=== PATIENT | female | born 1970 | race Caucasian/White ===

== ENCOUNTER 2017-01-21 18:47 | Emergency (ER) | payer OTHER ==
[~2017-01-21] VITALS: Ht 152.4 cm; Wt 87.7 kg
[~2017-01-21 18:47] MED LIST: CHOL20001 PO; THE PO
[2017-01-21 19:21] VITALS: BP 133/65
--- NOTE | 2017-01-21 21:15 | NUR ---
PT TAKEN TO OF
[2017-01-21 21:30] LABS: APPEARANCE,URINE CLEAR (CLEAR); BILIRUBIN,URINE NEGATIVE (NEGATIVE); BLOOD, URINE 2+ (NEGATIVE); COLOR,URINE YELLOW (YELLOW); LEUKOCYTE ESTERASE ,URINE NEGATIVE (NEGATIVE); NITRITE, URINE NEGATIVE (NEGATIVE); PROTEIN,URINE NEGATIVE (NEGATIVE); UGLUCOSE NEGATIVE (NEGATIVE); UROBILINOGEN,URINE 0.2 EU/dL (0.2 - 1)
[2017-01-21 21:35] LABS: BACTERIA,URINE FEW /HPF (None Seen); WBC,URINE 0-3 /HPF (0-5)
[2017-01-21 21:36] LABS: MUCUS,URINE 2+ /LPF (None Seen); SQUAMOUS EPITHELIAL CELL,UR 0-5 /LPF (0-3 (FEW))
--- NOTE | 2017-01-21 21:48 | NUR ---
46Y F BIB SELF C/O LEFT FLANK PAIN X 1 DAY. PT DENIES ANY TRAUMA TO THE AREA, ALSO DENIES ANY V/D, SOB, CP AT THE MOMENT. PT STATES SHE HAS OSTEOPENIA AND COLITIS. NKA. JUST NAUSEA X 1 DAY. PT IS AAOX 4. BREATHING IS UNLABORED AND CLEAR BILAT.
--- NOTE | 2017-01-21 21:48 | NUR ---
PT TAKEN TO BED 5
[2017-01-21] MEDS ORDERED: KETOROLAC 30 MG/ML VIAL IM ONE (21:50)
[2017-01-21 22:20] LABS: BASOPHILS # (AUTO) 0.1 K/uL (0.00-0.22); BASOPHILS % (AUTO) 0.9 % (0.0-2.0); EOSINOPHILS # (AUTO) 0.3 K/uL (0-0.4); EOSINOPHILS % (AUTO) 3.2 % (0.0-4.0); HEMATOCRIT 37.6 % (36-48); HEMOGLOBIN 12.3 g/dL (12.0-16.0); LYMPHOCYTES # (AUTO) 2.8 K/uL (2.5-16.5); LYMPHOCYTES % (AUTO) 29.1 % (20.5-51.1); MEAN CORPUSCULAR HEMOGLOBIN 28 pg (27-31); MEAN CORPUSCULAR HGB CONC 33 g/dL (33-37); MEAN CORPUSCULAR VOLUME 85 fL (80-94); MONOCYTES # (AUTO) 0.6 K/uL (0.8-1.0); NEUTROPHILS # (AUTO) 5.8 K/uL (1.8-7.7); NEUTROPHILS % (AUTO) 60.8 % (42.2-75.2); PLATELET COUNT (AUTO) 223 K/uL (140-450); RED BLOOD CELL COUNT(AUTO) 4.44 MIL/uL (4.20-5.40); RED CELL DISTRIBUTION WIDTH 14.3 % (11.6-13.7); WHITE BLOOD COUNT (AUTO) 9.6 K/uL (4.8-10.8)
--- NOTE | 2017-01-21 22:37 | NUR ---
PT TAKEN TO CT
[2017-01-21 22:39] LABS: ANION GAP 11.9 (8-16); CARBON DIOXIDE 23.8 mmol/L (21-32); POTASSIUM 3.7 mmol/L (3.5-5.1)
[2017-01-21 22:40] LABS: ALBUMIN 2.2 g/dL (3.4-5.0); CREATININE 0.9 mg/dL (0.6-1.3); TOTAL BILIRUBIN 0.3 mg/dL (0.0-1.0); TOTAL PROTEIN, SERUM 7.3 g/dL (6.4-8.2)
--- NOTE | 2017-01-21 22:45 | NUR ---
Ann ornelas in [facility] - 01/21/17 at 2245 by MARYJO PT RETURN FROM CT
--- NOTE | 2017-01-21 22:45 | NUR ---
PT RETURN FROM CT
--- NOTE | 2017-01-21 23:44 | NUR ---
Patient discharged with v/s stable. Written and verbal after care instructions given and explained. Patient alert, oriented and verbalized understanding of instructions. Ambulatory with steady gait. All questions addressed prior to discharge. ID band removed. Patient advised to follow up with PMD. Rx of NAPROSYN 500MG AND VALIUM 5MG given. Patient educated on indication of medication including possible reaction and side effects. Opportunity to ask questions provided and answered.
[2017-01-21 23:45] VITALS: BP 127/72
== END 2017-01-21 23:44 | disposition home or self-care (01) ==
LOC: MED 18:47
DX: R10.9 Unspecified abdominal pain (principal); M79.89 Other specified soft tissue disorders
CPT/HCPCS: 36415; 74176; 80053; 81001; 83690; 85025; 96372; 99285; J1885

== ENCOUNTER 2017-03-24 19:52 | Emergency (ER) | payer OTHER ==
[~2017-03-24] VITALS: Ht 152.4 cm; Wt 85.7 kg
[2017-03-24 20:51] VITALS: BP 145/72
--- NOTE | 2017-03-24 21:58 | NUR ---
Pt ambulated to bed 5.
--- NOTE | 2017-03-24 22:10 | NUR ---
46/F c/o left side abdominal pain radiating to left flank area x3 weeks. Pt describes pain as 5/10, sharp, intermittent accompanied by nausea and diarrhea, denies vomiting. Pt states "I'm not sure if I hurt myself, I went drinking 3 weeks ago so I don't know if I bumped myself but it feels sore." No discoloration or ecchymosis noted. Abdomen soft, non tender, hypoactive bowel sounds x4 quadrants. Denies s/s of UTI. AOX4, ambulates with steady gait. VSS. Pt placed in a gown, placed in position of comfort. Warm blanket provided.
--- NOTE | 2017-03-24 22:57 | NUR ---
Patient being evaluated by Dr. Samuels at bedside.
--- NOTE | 2017-03-24 23:28 | NUR ---
Warm blanket provided. All needs addressed.
--- NOTE | 2017-03-24 23:45 | NUR ---
Pt taken to CT via w/c.
--- NOTE | 2017-03-25 00:54 | NUR ---
Dr. Samuels re-evaluating patient at bedside.
[2017-03-25 01:01] VITALS: BP 121/74
--- NOTE | 2017-03-25 01:01 | NUR ---
Patient discharged with v/s stable. Written and verbal after care instructions given and explained. Patient alert, oriented and verbalized understanding of instructions. Ambulatory with steady gait. All questions addressed prior to discharge. ID band removed. Patient advised to follow up with PMD. Rx of Flexeril 5mg given. Patient educated on indication of medication including possible reaction and side effects. Opportunity to ask questions provided and answered.
== END 2017-03-25 01:01 | disposition home or self-care (01) ==
LOC: MED 19:52
DX: R07.81 Pleurodynia (principal); Z90.49 Acquired absence of other specified parts of digestive tract; Z79.899 Other long term (current) drug therapy
CPT/HCPCS: 81002; 81025; 99284